=== PATIENT | female | born 1990 | race Caucasian/White ===

== ENCOUNTER 2017-10-17 17:50 | Inpatient (IN) | payer OTHER ==
[2017-10-17] MEDS ORDERED: HYDROCODONE/APAP (5/325) TAB PO (19:30)
[2017-10-17] MEDS: ONDANSETRON 4 MG INJ IV (20:36)
[2017-10-17] MEDS: CIPROFLOXACIN 400MG/D5W 200 ML IVPB (20:40)
[2017-10-17] MEDS: metroNIDAZOLE 500 MG/NS (PMX) 100 ML IVPB (22:20)
[2017-10-17] MEDS: SOD CHLORIDE 0.9% 1,000 ML IV (22:21)
[2017-10-18 05:13] LABS: ADD MAN DIFF? NO
[2017-10-18 05:19] LABS: WHITE BLOOD COUNT 6.8 10^3/ul (4.8-10.8)
[2017-10-18 05:19] LABS: BASOPHILS % 0.4 % (0.0-2.0); EOSINOPHILS # 0.1 10^3/ul (0.0-0.5); EOSINOPHILS % 1.5 % (0.0-7.0); HEMATOCRIT 36.9 % (37.0-47.0); HEMOGLOBIN 12.2 g/dl (12.0-16.0); LYMPHOCYTES # 1.9 10^3/ul (0.8-2.9); LYMPHOCYTES % 28.5 % (15.0-51.0); MEAN CORPUSCULAR HEMOGLOBIN 28.6 pg (29.0-33.0); MEAN CORPUSCULAR HGB CONC 33.1 g/dl (32.0-37.0); MEAN CORPUSCULAR VOLUME 86.6 fl (82.0-101.0); MEAN PLATELET VOLUME 10.4 fl (7.4-10.4); MONOCYTE # 0.5 10^3/ul (0.3-0.9); MONOCYTES % 7.7 % (0.0-11.0); NEUTROPHIL # 4.2 10^3/ul (1.6-7.5); NEUTROPHILS % 61.6 % (39.0-77.0); PLATELET COUNT 188 10^3/UL (140-415); RED BLOOD COUNT 4.26 10^6/ul (4.20-5.40); RED CELL DISTRIBUTION WIDTH 12.7 % (11.5-14.5)
[2017-10-18] MEDS: metroNIDAZOLE 500 MG/NS (PMX) 100 ML IVPB ×3 (05:24→21:38)
[2017-10-18 05:52] LABS: ALANINE AMINOTRANSFERASE 126 IU/L (13-69); ALBUMIN 3.3 g/dl (3.3-4.9); ALKALINE PHOSPHATASE 89 IU/L (42-121); ANION GAP 10 (8-16); ASPARTATE AMINO TRANSFERASE 116 IU/L (15-46); BILIRUBIN,INDIRECT 1.9 mg/dl (0-1.1); BILIRUBIN,TOTAL 1.9 mg/dl (0.2-1.3); BLOOD UREA NITROGEN 6 mg/dl (7-20); CALCIUM 8.7 mg/dl (8.4-10.2); CARBON DIOXIDE 27 mmol/L (21-31); CHLORIDE 109 mmol/L (97-110); CREATININE 0.82 mg/dl (0.44-1.00); GLUCOSE 95 mg/dl (70-220); POTASSIUM 4.6 mmol/L (3.5-5.1); SODIUM 141 mmol/L (135-144); TOTAL PROTEIN 6.3 g/dl (6.1-8.1)
[2017-10-18] MEDS: SOD CHLORIDE 0.9% 1,000 ML IV ×2 (08:50→11:20)
[2017-10-18] MEDS: CIPROFLOXACIN 400MG/D5W 200 ML IVPB ×2 (09:29→20:28)
[2017-10-18] MEDS: ONDANSETRON 4 MG INJ IV (12:09)
[2017-10-18] MEDS ORDERED: LACTATED RINGER'S 1,000 ML IV* (13:00)
[2017-10-18] MEDS ORDERED: CEFAZOLIN 2 GM/50 ML (PMX) 50 ML IVPB (13:00)
[2017-10-18] MEDS: ACETAMINOPHEN 325 MG TAB PO ×2 (15:22→22:02)
[2017-10-19 05:01] LABS: ADD MAN DIFF? NO
[2017-10-19 05:07] LABS: WHITE BLOOD COUNT 5.6 10^3/ul (4.8-10.8)
[2017-10-19 05:07] LABS: BASOPHILS % 0.5 % (0.0-2.0); EOSINOPHILS # 0.2 10^3/ul (0.0-0.5); EOSINOPHILS % 2.7 % (0.0-7.0); HEMATOCRIT 35.7 % (37.0-47.0); HEMOGLOBIN 11.9 g/dl (12.0-16.0); LYMPHOCYTES # 2.1 10^3/ul (0.8-2.9); LYMPHOCYTES % 37.2 % (15.0-51.0); MEAN CORPUSCULAR HEMOGLOBIN 28.5 pg (29.0-33.0); MEAN CORPUSCULAR HGB CONC 33.3 g/dl (32.0-37.0); MEAN CORPUSCULAR VOLUME 85.4 fl (82.0-101.0); MEAN PLATELET VOLUME 9.9 fl (7.4-10.4); MONOCYTE # 0.5 10^3/ul (0.3-0.9); MONOCYTES % 8.8 % (0.0-11.0); NEUTROPHIL # 2.8 10^3/ul (1.6-7.5); NEUTROPHILS % 50.4 % (39.0-77.0); PLATELET COUNT 182 10^3/UL (140-415); RED BLOOD COUNT 4.18 10^6/ul (4.20-5.40); RED CELL DISTRIBUTION WIDTH 12.8 % (11.5-14.5)
[2017-10-19 05:17] LABS: MAGNESIUM 1.9 mg/dl (1.7-2.5)
[2017-10-19 05:17] LABS: PHOSPHORUS 3.1 mg/dl (2.5-4.9)
[2017-10-19 05:19] LABS: ALANINE AMINOTRANSFERASE 84 IU/L (13-69); ALBUMIN 3.4 g/dl (3.3-4.9); ALBUMIN/GLOBULIN RATIO 1.13; ALKALINE PHOSPHATASE 79 IU/L (42-121); ANION GAP 12 (8-16); ASPARTATE AMINO TRANSFERASE 40 IU/L (15-46); BILIRUBIN,INDIRECT 1.7 mg/dl (0-1.1); BILIRUBIN,TOTAL 1.7 mg/dl (0.2-1.3); BLOOD UREA NITROGEN 7 mg/dl (7-20); CALCIUM 8.7 mg/dl (8.4-10.2); CARBON DIOXIDE 26 mmol/L (21-31); CHLORIDE 108 mmol/L (97-110); CREATININE 0.85 mg/dl (0.44-1.00); GLUCOSE 89 mg/dl (70-220); POTASSIUM 3.7 mmol/L (3.5-5.1); SODIUM 142 mmol/L (135-144); TOTAL PROTEIN 6.4 g/dl (6.1-8.1)
[2017-10-19] MEDS: metroNIDAZOLE 500 MG/NS (PMX) 100 ML IVPB ×3 (06:05→22:09)
[2017-10-19] MEDS: CIPROFLOXACIN 400MG/D5W 200 ML IVPB ×2 (08:27→20:36)
[2017-10-19] MEDS: SOD CHLORIDE 0.9% 1,000 ML IV ×2 (11:04→16:58)
[2017-10-19] MEDS ORDERED: FENTAnyl 50 MCG/ML VIAL ×2 (11:08→12:13)
[2017-10-19] MEDS ORDERED: LIDOCAINE 2% (SDV) 5 ML INJ (11:08)
[2017-10-19] MEDS ORDERED: MIDAZOLAM 1 MG/ML 2 ML INJ (11:08)
[2017-10-19] MEDS ORDERED: PROPOFOL 20 ML (11:08)
[2017-10-19] MEDS ORDERED: ONDANSETRON 4 MG INJ (11:10)
[2017-10-19] MEDS ORDERED: DEXAMETHASONE 4 MG/ML 1 ML INJ (11:10)
[2017-10-19] MEDS ORDERED: ACETAMINOPHEN 1000MG/100ML IV 100 ML (11:10)
[2017-10-19] MEDS ORDERED: ROCURONIUM 50 MG INJ (11:10)
[2017-10-19] MEDS ORDERED: MEPERIDINE 25 MG INJ IV (12:00)
[2017-10-19] MEDS ORDERED: FENTAnyl 50 MCG/ML VIAL IV ×2 (12:00)
[2017-10-19] MEDS ORDERED: ONDANSETRON 4 MG INJ IV (12:00)
[2017-10-19] MEDS ORDERED: HYDROmorphONE (0.2 MG/ML) 10ML SYG IV ×2 (12:00)
[2017-10-19] MEDS: BUPIVACAINE 0.5% (SDV) 30 ML INJ (12:09)
[2017-10-19] MEDS: LIDOCAINE 1%/EPI 30 ML INJ (12:09)
[2017-10-19] MEDS ORDERED: SUGAMMADEX SODIUM 200 MG/2 ML VIAL IV (12:15)
[2017-10-19] MEDS ORDERED: KETOROLAC 30 MG INJ (13:01)
[2017-10-19] MEDS ORDERED: HYDROCODONE/APAP (5/325) TAB NGT (13:30)
[2017-10-19] MEDS: morphine 2 MG INJ IV (14:04)
[2017-10-19] MEDS: HYDROCODONE/APAP (5/325) TAB PO (23:52)
[2017-10-20] MEDS: metroNIDAZOLE 500 MG/NS (PMX) 100 ML IVPB ×2 (06:35→13:46)
[2017-10-20] MEDS: CIPROFLOXACIN 400MG/D5W 200 ML IVPB (08:40)
[2017-10-20] MEDS: ACETAMINOPHEN 325 MG TAB PO (08:47)
[2017-10-20 10:44] LABS: ALANINE AMINOTRANSFERASE 178 IU/L (13-69); ALBUMIN 3.2 g/dl (3.3-4.9); ALBUMIN/GLOBULIN RATIO 1.18; ALKALINE PHOSPHATASE 74 IU/L (42-121); ANION GAP 14 (8-16); ASPARTATE AMINO TRANSFERASE 132 IU/L (15-46); BILIRUBIN,INDIRECT 0.8 mg/dl (0-1.1); BILIRUBIN,TOTAL 0.8 mg/dl (0.2-1.3); BLOOD UREA NITROGEN 10 mg/dl (7-20); CALCIUM 8.2 mg/dl (8.4-10.2); CARBON DIOXIDE 25 mmol/L (21-31); CHLORIDE 107 mmol/L (97-110); CREATININE 0.89 mg/dl (0.44-1.00); GLUCOSE 173 mg/dl (70-220); POTASSIUM 3.8 mmol/L (3.5-5.1); SODIUM 142 mmol/L (135-144); TOTAL PROTEIN 5.9 g/dl (6.1-8.1)
[2017-10-20] MEDS: morphine 2 MG INJ IV ×2 (11:04→15:57)
[2017-10-20] MEDS: HYDROCODONE/APAP (5/325) TAB PO (11:55)
[2017-10-20] MEDS: SOD CHLORIDE 0.9% 1,000 ML IV (14:10)
== END 2017-10-20 17:00 | disposition home or self-care (01) | DRG 419 ==
LOC: MS1 17:50
PROC: 0FT44ZZ Resection of Gallbladder, Percutaneous Endoscopic Approach (ICD-10-PCS; principal; 2017-10-19 11:00)
DX: K80.12 Calculus of gallbladder with acute and chronic cholecystitis without obstruction (principal); E66.01 Morbid (severe) obesity due to excess calories; Z68.36 Body mass index [BMI] 36.0-36.9, adult; Z71.3 Dietary counseling and surveillance; R11.2 Nausea with vomiting, unspecified
CPT/HCPCS: 71045; 80053; 83735; 84100; 84703; 85025; 88304; 93005